=== PATIENT | female | born 1980 | race Two or more races ===

== ENCOUNTER → 2017-08-23 | Outpatient (CLI) | payer MEDICAID | LOC: FIMAGING 17:31 | PROVIDERS: ATTEND Nurse Practitioner Adult Health | DX: R06.02 Shortness of breath (principal) ==

== ENCOUNTER 2018-02-28 22:20 | Emergency (ER) | payer MEDICAID ==
--- NOTE | 2018-02-28 22:28 | EDPHY ---
H & P Stated Complaint: SICK FOR PAST 6 YEARS, SOB AND FEVER Time Seen by Provider: 02/28/18 22:27 HPI/ROS: HPI CHIEF COMPLAINT: Generalized weakness x2 days, chronically ill for 6 years HISTORY OF PRESENT ILLNESS: This patient is a 37-year-old female, she presents emergency room with generalized weakness for 2 days. Progressively getting worse. She states for the past 2 days she has been in bed unable to get out of bed and has been too weak. She states additionally she feels short of breath and global weakness and heaviness of her arms and legs. She states that she has been chronically ill and sick for 6 years she initially got malaria was treated for malaria then developed neuropathy. She states she takes large amount of supplements but no significant medications. She states she is unemployed and cannot work due to her chronic debility and generalized weakness. Decided come the emergency room tonight due to worsening global weakness. She denies any fever. Denies chest pain does complain of shortness of breath. Complains that all of her limbs or heavy. Denies neck pain or headache. Denies focal numbness or tingling, denies abdominal pain vomiting or diarrhea. Past Medical History: History of malaria, neuropathy, generalized weakness Past Surgical History: Appendectomy Social History: Denies drugs alcohol tobacco products. Unemployed. Mom at bedside. Family History: Noncontributory ROS REVIEW OF SYSTEMS: A comprehensive 10 point review of systems is otherwise negative aside from elements mentioned in the history of present illness. Exam Constitutional appears nontoxic, triage nursing summary reviewed, vital signs reviewed, awake/alert. Eyes normal conjunctivae and sclera, EOMI, PERRLA. HENT normal inspection, atraumatic, moist mucus membranes, no epistaxis, neck supple/ no meningismus, no raccoon eyes. Respiratory clear to auscultation bilaterally, normal breath sounds, no respiratory distress, no wheezing. Cardiovascular rate normal, regular rhythm, no murmur, no edema, distal pulses normal. Gastrointestinal soft, non-tender, no rebound, no guarding, normal bowel sounds, no distension, no pulsatile mass. Genitourinary no CVA tenderness. Musculoskeletal no midline vertebral tenderness, full range of motion, no calf swelling, no tenderness of extremities, no meningismus, good pulses, neurovascularly intact. Skin pink, warm, & dry, no rash, skin atraumatic. Neurologic globally weak, no focal neuro deficit, awake, alert and oriented x 3 , AAOx3, moves all 4 extremities equally, motor intact, sensory intact, CN II- XII intact, normal cerebellar, normal vision, normal speech. Psychiatric normal mood/affect. Heme/Lymph/Immune no lymphadenopathy. Differential Diagnosis: Includes but is not limited to in a particular order electrolyte disturbance, dehydration, infection, neuropathy, anxiety, panic attack, UTI, pneumonia, acute coronary syndrome, PE Medical Decision Making: Plan for this patient workup rather extensive for generalized weakness, check electrolytes, gentle IV fluids, check for infection urinalysis and chest x-ray, blood work, EKG and re-evaluate. Re-evaluation: 1215: Patient re-evaluated she is feeling much better after IV fluids. Her blood work has been reviewed she had extensive workup here in emergency room for generalized weakness. Her blood work is unremarkable her electrolytes are appropriate she does not have an elevated white blood cell count. There is no signs of systemic infection. Her vitals have been stable here. She has a normal chest x-ray and nonischemic normal EKG. Unclear etiology of global weakness but she is feeling better after IV fluids. I discussed return precautions with her. She understands return emergency room she develops worsening symptoms includes chest pain, shortness of breath, fever , or feeling worse. I do recommend she follows up with primary care doctor. She asked me for antibiotics for possible sinus disease however there is no evidence of sinus infection on exam nor did she have an elevated white blood cell count her vital signs are stable she is afebrile. She has no sinus tenderness on exam. I have declined antibiotics at this time. Recommend she follows up with primary care doctor. Return to the ER for worsening symptoms. 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 appendectomy; workup for autoimmune disorder - Social History Smoking Status: Never smoked Constitutional: Initial Vital Signs Temperature (C) 36.3 C 02/28/18 22:23 Heart Rate 84 02/28/18 22:23 Respiratory Rate 18 02/28/18 22:23 Blood Pressure 131/75 H 02/28/18 22:23 O2 Sat (%) 100 02/28/18 22:23 O2 Delivery Mode Room Air Allergies/Adverse Reactions: ciprofloxacin [From Cipro] Allergy (Verified 02/28/18 22:25) ciprofloxacin HCl [From Cipro] Allergy (Verified 02/28/18 22:25) famotidine Allergy (Verified 02/28/18 22:25) Other-Enter Comments nitrofurantoin Allergy (Verified 02/28/18 22:25) omeprazole Allergy (Verified 02/28/18 22:25) Other-Enter Comments Home Medications: Medication Instructions Recorded NK [No Known Home Meds] 11/19/15 Medical Decision Making - Diagnostics Imaging Results: Imaging Impressions Chest X-Ray 02/28/18 22:34 IMPRESSION: Normal chest x-ray. - Data Points Laboratory Results: Laboratory Results 02/28/18 22:35 02/28/18 22:35 02/28/18 02/28/18 02/28/18 23:05 22:35 22:35 WBC RBC Hgb Hct MCV MCH MCHC RDW Plt Count MPV Neut % (Auto) Lymph % (Auto) [place] % (Auto) Eos % (Auto) Baso % (Auto) Nucleat RBC Rel Count Absolute Neuts (auto) Absolute Lymphs (auto) Absolute Monos (auto) Absolute Eos (auto) Absolute Basos (auto) Absolute Nucleated RBC Immature Gran % Immature Gran # ESR PT INR APTT D-Dimer Sodium 136 mEq/L mEq/L (135-145) Potassium 3.9 mEq/L mEq/L (3.5-5.2) Chloride 99 mEq/L mEq/L (97-110) Carbon Dioxide 21 mEq/l L mEq/l (22-31) Anion Gap 16 mEq/L mEq/L (8-16) BUN 11 mg/dL mg/dL (7-23) Creatinine 0.5 mg/dL L mg/dL (0.6-1.0) Estimated GFR > 60 Glucose 114 mg/dL H mg/dL (70-100) Calcium 9.8 mg/dL mg/dL (8.5-10.4) Magnesium 1.8 mg/dL mg/dL (1.6-2.3) Total Bilirubin 0.4 mg/dL mg/dL (0.1-1.4) Conjugated Bilirubin 0.3 mg/dL mg/dL (0.0-0.5) Unconjugated Bilirubin 0.1 mg/dL mg/dL (0.0-1.1) AST 29 IU/L IU/L (14-46) ALT 43 IU/L IU/L (9-52) Alkaline Phosphatase 52 IU/L IU/L (38-126) Creatine Kinase 55 IU/L IU/L (0-156) CK-MB (CK-2) Fraction 0.48 ng/mL ng/mL (0.00-3.19) Troponin I < 0.012 ng/mL ng/mL (0.000-0.034) C-Reactive Protein < 5.0 mg/L mg/L (<10.0) NT-Pro-B Natriuret Pep 48 pg/mL pg/mL (0-125) Total Protein 8.0 g/dL g/dL (6.3-8.2) Albumin 4.8 g/dL g/dL (3.5-5.0) Lipase 287 IU/L IU/L (23-300) TSH 3.880 uIU/mL uIU/mL (0.465-4.680) Beta HCG, Qual NEGATIVE Urine Color COLORLESS Urine Appearance CLEAR Urine pH 5.0 (5.0-7.5) Ur Specific [place] 1.003 (1.002-1.030) Urine Protein NEGATIVE (NEGATIVE) Urine Ketones NEGATIVE (NEGATIVE) Urine Blood NEGATIVE (NEGATIVE) Urine Nitrate NEGATIVE (NEGATIVE) Urine Bilirubin NEGATIVE (NEGATIVE) Urine Urobilinogen NEGATIVE EU EU (0.2-1.0) Ur Leukocyte Esterase NEGATIVE (NEGATIVE) Urine Glucose NEGATIVE (NEGATIVE) Urine Opiates Screen NEGATIVE (NEGATIVE) Urine Barbiturates NEGATIVE (NEGATIVE) Ur Phencyclidine Scrn NEGATIVE (NEGATIVE) Ur Amphetamine Screen NEGATIVE (NEGATIVE) U Benzodiazepines Scrn NEGATIVE (NEGATIVE) Urine Cocaine Screen NEGATIVE (NEGATIVE) U Marijuana (THC) Screen NEGATIVE (NEGATIVE) 02/28/18 02/28/18 22:35 22:35 WBC 8.21 10^3/uL 10^3/uL (3.80-9.50) RBC 4.92 10^6/uL 10^6/uL (4.18-5.33) Hgb 13.8 g/dL g/dL (12.6-16.3) Hct 42.0 % % (38.0-47.0) MCV 85.4 fL fL (81.5-99.8) MCH 28.0 pg pg (27.9-34.1) MCHC 32.9 g/dL g/dL (32.4-36.7) RDW 11.9 % % (11.5-15.2) Plt Count 448 10^3/uL H 10^3/uL (150-400) MPV 8.9 fL fL (8.7-11.7) Neut % (Auto) 57.0 % % (39.3-74.2) Lymph % (Auto) 30.8 % % (15.0-45.0) [place] % (Auto) 7.8 % % (4.5-13.0) Eos % (Auto) 3.3 % % (0.6-7.6) Baso % (Auto) 0.9 % % (0.3-1.7) Nucleat RBC Rel Count 0.0 % % (0.0-0.2) Absolute Neuts (auto) 4.68 10^3/uL 10^3/uL (1.70-6.50) Absolute Lymphs (auto) 2.53 10^3/uL 10^3/uL (1.00-3.00) Absolute Monos (auto) 0.64 10^3/uL 10^3/uL (0.30-0.80) Absolute Eos (auto) 0.27 10^3/uL 10^3/uL (0.03-0.40) Absolute Basos (auto) 0.07 10^3/uL 10^3/uL (0.02-0.10) Absolute Nucleated RBC 0.00 10^3/uL 10^3/uL (0-0.01) Immature Gran % 0.2 % % (0.0-1.1) Immature Gran # 0.02 10^3/uL 10^3/uL (0.00-0.10) ESR 8 MM/HR MM/HR (0-20) PT 14.1 SEC SEC (12.0-15.0) INR 1.07 (0.83-1.16) APTT 31.4 SEC SEC (23.0-38.0) D-Dimer 0.32 ug/mLFEU ug/mLFEU (0.00-0.50) Sodium Potassium Chloride Carbon Dioxide Anion Gap BUN Creatinine Estimated GFR Glucose Calcium Magnesium Total Bilirubin Conjugated Bilirubin Unconjugated Bilirubin AST ALT Alkaline Phosphatase Creatine Kinase CK-MB (CK-2) Fraction Troponin I C-Reactive Protein NT-Pro-B Natriuret Pep Total Protein Albumin Lipase TSH Beta HCG, Qual Urine Color Urine Appearance Urine pH Ur Specific [place] Urine Protein Urine Ketones Urine Blood Urine Nitrate Urine Bilirubin Urine Urobilinogen Ur Leukocyte Esterase Urine Glucose Urine Opiates Screen Urine Barbiturates Ur Phencyclidine Scrn Ur Amphetamine Screen U Benzodiazepines Scrn Urine Cocaine Screen U Marijuana (THC) Screen Medications Given: Discontinued Medications Sodium Chloride (Ns) 1,000 mls @ 0 mls/hr IV EDNOW ONE; Wide Open PRN Reason: Protocol Stop: 02/28/18 22:34 Last Admin: 02/28/18 22:38 Dose: 1,000 mls Departure - Departure Disposition: Home, Routine, Self-Care Clinical Impression: Dehydration, Generalized weakness Condition: Good Instructions: Dehydration (ED), Weakness (ED) Additional Instructions: 1. Stay well-hydrated. 2. Follow up with her primary care doctor 3. Return to the emergency room if you have worsening symptoms questions or concerns. Referrals: NONE *PRIMARY CARE P,. [Primary Care Provider] - As per Instructions
[2018-02-28] MEDS ORDERED: NS 1,000 ML IV ONE (22:33)
--- NOTE | 2018-02-28 22:43 | CPEKG ---
Heart Rate: 83 RR Interval: 723 P-R Interval: 176 QRSD Interval: 72 QT Interval: 372 QTC Interval: 437 P [place]: 67 QRS [place]: 57 T Wave [place]: 40 EKG Severity - ABNORMAL ECG - EKG Impression: SINUS RHYTHM EKG Impression: PAIRED VENTRICULAR PREMATURE COMPLEXES EKG Impression: PROBABLE LEFT ATRIAL ABNORMALITY Electronically Signed By: Rashad Lopez 04-Mar-2018 12:06:11
[2018-02-28 22:49] LABS: PLATELET COUNT 448 10^3/uL (150-400)
[2018-02-28 22:56] LABS: INR 1.07 (0.83-1.16); PROTIME(PATIENT) 14.1 SEC (12.0-15.0)
[2018-02-28 23:07] LABS: CREATINE KINASE 55 IU/L (0-156)
[2018-03-01 00:21] VITALS: BP 105/68
== END 2018-03-01 00:32 | disposition home or self-care (01) ==
DX: R53.1 Weakness (principal); E86.0 Dehydration
CPT/HCPCS: 80305

== ENCOUNTER 2018-04-28 20:09 | Emergency (ER) | payer MEDICAID ==
--- NOTE | 2018-04-28 20:56 | EDPHY ---
General Time Seen by Provider: 04/28/18 20:35 Narrative: CHIEF COMPLAINT: jaundice, fungal infection, abdominal pain, urethral pain HISTORY OF PRESENT ILLNESS: Patient presents with complaints of jaundice, fungal infection, abdominal pain, urethral pain, fever and nausea. Symptoms have been present "for several days, and for 6 years." She feels as though that she has had some yellow appearing skin due to "infection starting a few days ago." She reports intermittent symptoms including "low grade fever." No chest pain but she has had some cough. She has upper abdominal pain and pain at the urethra. She feels as though she has had a candidal infection of the vagina/vulva that has minimal improvement with Monistat. She feels as though she has had fungal infection " to all of my skin," that has improved with topical terbinafine OTC. She also reports "the last time I felt this way I had malaria." She has not traveled to any endemic areas in over 6 years, and she was treated at that time as well. No other associated complaints or modifying factors. REVIEW OF SYSTEMS: Ten systems reviewed and are negative unless otherwise noted in the HPI PCP: Dr. Kira Nunez SPECIALISTS: None currently PAST MEDICAL HISTORY: Malaria, fungal infection PAST SURGICAL HISTORY: No recent surgeries SOCIAL HISTORY: Nonsmoker. Lives here independently. FAMILY HISTORY: Noncontributory EXAMINATION General Appearance: Alert, no distress Head: normocephalic, atraumatic Eyes: Pupils equal and round, no conjunctival pallor or injection. No icterus. EOM symmetric ENT, Mouth: Mucous membranes moist. No jaundice. Airway widely patent. Neck: Normal inspection, supple, non-tender Respiratory: Lungs are clear to auscultation Cardiovascular: Regular rate and rhythm. No murmur Gastrointestinal: Abdomen is soft and nontender. No tympany rigidity. No distention. No guarding. No CVA tenderness. : declined by patient Back: non-tender, no bony abnormalities Neurological: A&O, nonfocal, normal gait Skin: Warm and dry, no rash. No petechiae or purpura. No jaundice. Extremities: Nontender, no pedal edema Psychiatric: Mood and affect normal DIFFERENTIAL DIAGNOSES: Including but not limited to dehydration, pneumonia, dermatitis, vulvovaginitis , urethritis, cystitis, pyelonephritis MDM: 8:55 p.m. Multiple complaints including abdominal pain, nausea, "jaundice," vaginal discomfort and "fungal infection." Vital signs reveal mild tachycardia but she does not meet SIRS criteria. I have asked the patient to be moved from aden bed to a room. We will obtain IV access, laboratory studies, chest x-ray. I have also ordered IV fluid. 10:11 p.m. Patient re-evaluated. We discussed her laboratory studies which are relatively unremarkable. There is mild hypochloremia and mild concentration of the urine. Patient still has some urethral discomfort, thus I will order urine culture. She is declining a pelvic examination. Her abdominal exam remains benign, and I do not feel she warrants CT scan abdomen pelvis. She continues to feel that there is a rash all over that I do not appreciate on examination. Her vital signs are within normal limits. She has received 1 L IV fluid. I do feel she is stable for discharge home with outpatient follow-up with Rheumatology, Dermatology and at her request Urology. I do not appreciate any other findings here and I do feel she is ready for discharge home. She is comfortable this plan. SUPERVISION: Patient was independently examined, but I discussed the case with my secondary supervising physician Dr. Zhao - History Smoking Status: Never smoked - Objective Vital Signs: Initial Vital Signs Temperature (C) 99.0 F 04/28/18 20:11 Heart Rate 104 H 04/28/18 20:11 Respiratory Rate 16 04/28/18 20:11 Blood Pressure 122/77 H 04/28/18 20:11 O2 Sat (%) 97 04/28/18 20:11 O2 Delivery Mode Room Air Allergies/Adverse Reactions: ciprofloxacin [From Cipro] Allergy (Verified 04/28/18 20:14) ciprofloxacin HCl [From Cipro] Allergy (Verified 04/28/18 20:14) famotidine Allergy (Verified 04/28/18 20:14) Other-Enter Comments nitrofurantoin Allergy (Verified 04/28/18 20:14) omeprazole Allergy (Verified 04/28/18 20:14) Other-Enter Comments Home Medications: Medication Instructions Recorded Herbals/Supplements -Info Only 04/28/18 Monistat Soothing Care 04/28/18 Laboratory Results: 04/28/18 04/28/18 04/28/18 21:20 21:20 21:20 WBC Pending RBC Pending Hgb Pending Hct Pending MCV Pending MCH Pending MCHC Pending RDW Pending Plt Count Pending MPV Pending Neut % (Auto) Pending Lymph % (Auto) Pending [place] % (Auto) Pending Eos % (Auto) Pending Baso % (Auto) Pending Nucleat RBC Rel Count Pending Absolute Neuts (auto) Pending Absolute Lymphs (auto) Pending Absolute Monos (auto) Pending Absolute Eos (auto) Pending Absolute Basos (auto) Pending Absolute Nucleated RBC Pending Immature Gran % Pending Immature Gran # Pending Sodium Pending Potassium Pending Chloride Pending Carbon Dioxide Pending Anion Gap Pending BUN Pending Creatinine Pending Estimated GFR Pending Glucose Pending Calcium Pending Total Bilirubin Pending Conjugated Bilirubin Pending Unconjugated Bilirubin Pending AST Pending ALT Pending Alkaline Phosphatase Pending Total Protein Pending Albumin Pending Lipase Pending Beta HCG, Qual Pending Medications Given: Discontinued Medications Sodium Chloride (Ns) 1,000 mls @ 0 mls/hr IV EDNOW ONE; Wide Open PRN Reason: Protocol Stop: 04/28/18 20:59 Last Admin: 04/28/18 21:18 Dose: 1,000 mls Departure - Departure Disposition: Home, Routine, Self-Care Clinical Impression: Dehydration Abdominal pain Qualifiers: Abdominal location: generalized Qualified Code(s): R10.84 - Generalized abdominal pain Condition: Good Instructions: Acute Rash (ED), Acute Abdominal Pain (ED) Additional Instructions: 1. Return to emergency department if you do not have resolution within 24 hr 2. Contact the outpatient follow-up physicians as provided Referrals: [facility] [Outside] - As per Instructions Michael Khanna MD [Medical Doctor] - As per Instructions Neida Bonilla MD [Medical Doctor] - As per Instructions Kira Nunez MD [[facility] Primary Care Provider] - As per Instructions
[2018-04-28] MEDS ORDERED: NS 1,000 ML IV ONE (20:58)
[2018-04-28 21:31] LABS: PLATELET COUNT 465 10^3/uL (150-400)
[2018-04-28 22:31] VITALS: BP 111/74
== END 2018-04-28 22:28 | disposition home or self-care (01) ==
DX: R10.84 Generalized abdominal pain (principal); E86.9 Volume depletion, unspecified

== ENCOUNTER 2018-05-01 02:35 | Emergency (ER) | payer MEDICAID ==
--- NOTE | 2018-05-01 02:42 | EDPHY ---
H & P Time Seen by Provider: 05/01/18 02:42 HPI/ROS: HPI CHIEF COMPLAINT: Muscle aches, Chronically Ill. HISTORY OF PRESENT ILLNESS: Patient 37-year-old female, she states she is chronically illness been sick for 6 years. States she carries chronic illness is unable to work. She has a history of malaria, and malaria treatment that she states caused her neuropathy and chronic nerve damage, additionally she reports that she takes over the counter antifungals. She presents emergency room stating that all of her muscles ache. She states her right lateral leg got scratched by a dog a few days ago and ever since then she has had diffuse muscle aches. She denies any fever she denies chest pain shortness of breath, denies abdominal pain or vomiting. Denies headache or stiff neck. Main complaint is muscle aches initially started her legs and now has progressed upper body. No weakness. Past Medical History: Malaria, neuropathy, chronic illness, chronic debility Past Surgical History: Denies recent surgery but has had appendectomy Social History: Denies drugs alcohol tobacco Family History: Noncontributory ROS REVIEW OF SYSTEMS: A comprehensive 10 point review of systems is otherwise negative aside from elements mentioned in the history of present illness. Exam Constitutional appears well nontoxic no acute distress, triage nursing summary reviewed, vital signs reviewed, awake/alert. Eyes normal conjunctivae and sclera, EOMI, PERRLA. No jaundice, no icteric eyes. HENT normal inspection, atraumatic, moist mucus membranes, no epistaxis, neck supple/ no meningismus, no raccoon eyes. Respiratory clear to auscultation bilaterally, normal breath sounds, no respiratory distress, no wheezing. Cardiovascular rate normal, regular rhythm, no murmur, no edema, distal pulses normal. Gastrointestinal soft, non-tender, no rebound, no guarding, normal bowel sounds, no distension, no pulsatile mass. Genitourinary no CVA tenderness. Musculoskeletal no midline vertebral tenderness, full range of motion, no calf swelling, no tenderness of extremities, no meningismus, good pulses, neurovascularly intact. Skin no significant rash or discoloration visualized. Very superficial linear abrasion to the right lateral calf. pink, warm, & dry, no rash, skin atraumatic. Neurologic awake, alert and oriented x 3, AAOx3, moves all 4 extremities equally, motor intact, sensory intact, CN II-XII intact, normal cerebellar, normal vision, normal speech. Psychiatric normal mood/affect. Heme/Lymph/Immune no lymphadenopathy. Differential Diagnosis: Includes but is not limited to in a particular order dehydration, electrolyte disturbance, rhabdomyolysis, infection Medical Decision Making: Plan for this patient will establish an IV, fluid bolus 1 L normal saline, check basic blood work and re-evaluate. Vital signs are noted to be normal here. Re-evaluation: 0433: Patient resting comfortably here in the emergency room in no acute distress her blood work is reassuring except for sodium is noted to be a little bit low at 128. I did review her sodium from her last recent ER visit and was in 135. She does state that she has not been eating much. Additionally she has been drinking rather large amounts of free water. I encouraged her to not drink so much free water I encouraged her to increase salt into her diet. Additionally she should follow up with primary care doctor to have her sodium recheck in a few days. Additionally if she has worsening symptoms including chest pain, shortness of breath, fever, not feeling well, confusion, generalized weakness she should return emergency room she understands. She is comfortable this plan. Source: Patient - Personal History Tetanus Vaccine Date: unknown - Medical/Surgical History Hx Asthma: No Hx Chronic Respiratory Disease: No Hx Diabetes: No Hx Cardiac Disease: No Hx Renal Disease: No Hx Cirrhosis: No Hx Alcoholism: No Hx HIV/AIDS: No Hx Splenectomy or Spleen Trauma: No Other PMH: 2011 Malaria, nerve damage from malaria tx; phlebitis & superficial thrombosis; FUO since January. appendectomy; workup for autoimmune disorder - Social History Smoking Status: Never smoked Constitutional: Initial Vital Signs Temperature (C) 37.4 C 05/01/18 02:43 Heart Rate 90 05/01/18 02:43 Respiratory Rate 16 05/01/18 02:43 Blood Pressure 115/71 05/01/18 02:43 O2 Sat (%) 98 05/01/18 02:43 O2 Delivery Mode Room Air Allergies/Adverse Reactions: ciprofloxacin [From Cipro] Allergy (Verified 05/01/18 02:42) ciprofloxacin HCl [From Cipro] Allergy (Verified 05/01/18 02:42) famotidine Allergy (Verified 05/01/18 02:42) Other-Enter Comments nitrofurantoin Allergy (Verified 05/01/18 02:42) omeprazole Allergy (Verified 05/01/18 02:42) Other-Enter Comments Home Medications: Medication Instructions Recorded Miconazole Nitrate [Monistat 3] 200 mg VG 05/01/18 Medical Decision Making - Data Points Laboratory Results: Laboratory Results 05/01/18 03:30 05/01/18 03:30 05/01/18 05/01/18 05/01/18 03:30 03:30 03:30 WBC 6.47 10^3/uL 10^3/uL (3.80-9.50) RBC 4.38 10^6/uL 10^6/uL (4.18-5.33) Hgb 12.6 g/dL g/dL (12.6-16.3) Hct 37.2 % L % (38.0-47.0) MCV 84.9 fL fL (81.5-99.8) MCH 28.8 pg pg (27.9-34.1) MCHC 33.9 g/dL g/dL (32.4-36.7) RDW 11.9 % % (11.5-15.2) Plt Count 414 10^3/uL H 10^3/uL (150-400) MPV 9.2 fL fL (8.7-11.7) Neut % (Auto) 76.9 % H % (39.3-74.2) Lymph % (Auto) 13.9 % L % (15.0-45.0) Hancock % (Auto) 7.9 % % (4.5-13.0) Eos % (Auto) 0.5 % L % (0.6-7.6) Baso % (Auto) 0.6 % % (0.3-1.7) Nucleat RBC Rel Count 0.0 % % (0.0-0.2) Absolute Neuts (auto) 4.98 10^3/uL 10^3/uL (1.70-6.50) Absolute Lymphs (auto) 0.90 10^3/uL L 10^3/uL (1.00-3.00) Absolute Monos (auto) 0.51 10^3/uL 10^3/uL (0.30-0.80) Absolute Eos (auto) 0.03 10^3/uL 10^3/uL (0.03-0.40) Absolute Basos (auto) 0.04 10^3/uL 10^3/uL (0.02-0.10) Absolute Nucleated RBC 0.00 10^3/uL 10^3/uL (0-0.01) Immature Gran % 0.2 % % (0.0-1.1) Immature Gran # 0.01 10^3/uL 10^3/uL (0.00-0.10) Sodium 128 mEq/L L mEq/L (135-145) Potassium 4.6 mEq/L mEq/L (3.3-5.0) Chloride 94 mEq/L L mEq/L (97-110) Carbon Dioxide 17 mEq/l L mEq/l (22-31) Anion Gap 17 mEq/L H mEq/L (8-16) BUN 2 mg/dL L mg/dL (7-23) Creatinine 0.5 mg/dL L mg/dL (0.6-1.0) Estimated GFR > 60 Glucose 85 mg/dL mg/dL (70-100) Calcium 9.0 mg/dL mg/dL (8.5-10.4) Magnesium 1.8 mg/dL mg/dL (1.6-2.3) Total Bilirubin 0.9 mg/dL mg/dL (0.1-1.4) Conjugated Bilirubin 0.4 mg/dL mg/dL (0.0-0.5) Unconjugated Bilirubin 0.5 mg/dL mg/dL (0.0-1.1) AST 33 IU/L IU/L (14-46) ALT 36 IU/L IU/L (9-52) Alkaline Phosphatase 53 IU/L IU/L (38-126) Creatine Kinase 114 IU/L IU/L (0-156) Total Protein 7.8 g/dL g/dL (6.3-8.2) Albumin 4.7 g/dL g/dL (3.5-5.0) Beta HCG, Qual NEGATIVE Medications Given: Discontinued Medications Sodium Chloride (Ns) 1,000 mls @ 0 mls/hr IV EDNOW ONE; Wide Open PRN Reason: Protocol Stop: 05/01/18 03:15 Last Admin: 05/01/18 03:55 Dose: 1,000 mls Departure - Departure Disposition: Home, Routine, Self-Care Clinical Impression: Hyponatremia Condition: Good Instructions: Hyponatremia (ED) Additional Instructions: 1. Please follow up with her primary care doctor 2. I would increase her salt intake. 3. You're sodium was slightly low at 128. 4. I would watch him much free water you drink. 5. Try to increase her salt intake. 6. Return to the emergency room if he develops worsening symptoms questions or concerns. Referrals: Kira Nunez MD [Primary Care Provider] - As per Instructions
[2018-05-01] MEDS ORDERED: NS 1,000 ML IV ONE (03:14)
[2018-05-01 03:42] LABS: PLATELET COUNT 414 10^3/uL (150-400)
[2018-05-01 03:53] LABS: CREATINE KINASE 114 IU/L (0-156)
[2018-05-01 04:50] VITALS: BP 115/77
== END 2018-05-01 04:48 | disposition home or self-care (01) ==
DX: E87.1 Hypo-osmolality and hyponatremia (principal); E86.9 Volume depletion, unspecified

== ENCOUNTER 2018-05-02 01:43 | Emergency (ER) | payer MEDICAID ==
--- NOTE | 2018-05-02 01:55 | EDPHY ---
H & P Stated Complaint: SELF CORRECT NA+,DIZZY,DIFF WALKING/LOW NA+ YEST Time Seen by Provider: 05/02/18 01:55 HPI/ROS: HPI CHIEF COMPLAINT: Seen last night low-sodium HISTORY OF PRESENT ILLNESS: Patient 37-year-old female she presents emergency room after she states that she was seen here in the emergency room by myself last night with a slightly low sodium. She states that she went home last night and yesterday increased her sodium she you story sauce, additionally drink Pedialyte, additionally ate salty things and she states that she felt rather lightheaded somewhat dizzy trouble walking and she is now concerned that her sodium may be too high. She checked back in the emergency room to have her sodium checked. Since having the symptoms she has felt slightly better. She drank water. She denies any chest pain or shortness of breath, denies fever, denies dizziness, denies headache. Past Medical History: Malaria, chronic debility, neuropathy Past Surgical History: No recent surgery Social History: She lives locally denies drugs alcohol tobacco. Family History: Noncontributory ROS REVIEW OF SYSTEMS: A comprehensive 10 point review of systems is otherwise negative aside from elements mentioned in the history of present illness. Exam Constitutional triage nursing summary reviewed, vital signs reviewed, awake/ alert. Eyes normal conjunctivae and sclera, EOMI, PERRLA. HENT normal inspection, atraumatic, moist mucus membranes, no epistaxis, neck supple/ no meningismus, no raccoon eyes. Respiratory clear to auscultation bilaterally, normal breath sounds, no respiratory distress, no wheezing. Cardiovascular rate normal, regular rhythm, no murmur, no edema, distal pulses normal. Gastrointestinal soft, non-tender, no rebound, no guarding, normal bowel sounds, no distension, no pulsatile mass. Genitourinary no CVA tenderness. Musculoskeletal no midline vertebral tenderness, full range of motion, no calf swelling, no tenderness of extremities, no meningismus, good pulses, neurovascularly intact. Skin pink, warm, & dry, no rash, skin atraumatic. Neurologic awake, alert and oriented x 3, AAOx3, moves all 4 extremities equally, motor intact, sensory intact, CN II-XII intact, normal cerebellar, normal vision, normal speech. Psychiatric normal mood/affect. Heme/Lymph/Immune no lymphadenopathy. Differential Diagnosis: Includes but is not limited to in a particular order electrolyte disturbance, hyponatremia, hypernatremia Medical Decision Making: Plan for this patient check BMP. Re-evaluation: BMP repeat chemistry check sodium is back to normal. Recommend patient refrain from ingesting large amounts of salt or large amounts of free water. Recommend regular diet. Return precautions discussed with the patient she understands Source: Patient - Personal History LMP (Females 10-55): Now Current Tetanus Diphtheria and Acellular Pertussis (TDAP): No Tetanus Vaccine Date: unknown - Medical/Surgical History Hx Asthma: No Hx Chronic Respiratory Disease: No Hx Diabetes: No Hx Cardiac Disease: No Hx Renal Disease: No Hx Cirrhosis: No Hx Alcoholism: No Hx HIV/AIDS: No Hx Splenectomy or Spleen Trauma: No Other PMH: 2011 Malaria, nerve damage from malaria tx; phlebitis & superficial thrombosis; FUO since January. appendectomy; workup for autoimmune disorder, AUTONOMIC NEUROPATHY - Social History Smoking Status: Never smoked Constitutional: Initial Vital Signs Temperature (C) 36.7 C 05/02/18 01:50 Heart Rate 89 05/02/18 01:50 Respiratory Rate 16 05/02/18 01:50 Blood Pressure 128/84 H 05/02/18 01:50 O2 Sat (%) 99 05/02/18 01:50 O2 Delivery Mode Room Air Allergies/Adverse Reactions: ciprofloxacin [From Cipro] Allergy (Verified 05/01/18 02:42) ciprofloxacin HCl [From Cipro] Allergy (Verified 05/01/18 02:42) famotidine Allergy (Verified 05/01/18 02:42) Other-Enter Comments nitrofurantoin Allergy (Verified 05/01/18 02:42) omeprazole Allergy (Verified 05/01/18 02:42) Other-Enter Comments Home Medications: Medication Instructions Recorded Miconazole Nitrate [Monistat 3] 200 mg VG 05/01/18 Antibacterial Herbal 05/02/18 Herbal Antifungal 05/02/18 Herbal Antiviral 05/02/18 Medical Decision Making - Data Points Laboratory Results: Laboratory Results 05/02/18 02:20 05/02/18 02:20 Sodium 139 mEq/L mEq/L (135-145) Potassium 4.3 mEq/L mEq/L (3.3-5.0) Chloride 104 mEq/L mEq/L (97-110) Carbon Dioxide 20 mEq/l L mEq/l (22-31) Anion Gap 15 mEq/L mEq/L (8-16) BUN 3 mg/dL L mg/dL (7-23) Creatinine 0.5 mg/dL L mg/dL (0.6-1.0) Estimated GFR > 60 Glucose 90 mg/dL mg/dL (70-100) Calcium 9.0 mg/dL mg/dL (8.5-10.4) Departure - Departure Disposition: Home, Routine, Self-Care Clinical Impression: Electrolyte disturbance Condition: Good Instructions: Dehydration (ED) Additional Instructions: 1. Recommend regular diet. 2. Do not consume large amounts of salt or large amounts of free water. Regular diet. Referrals: Kira Nunez MD [Primary Care Provider] - As per Instructions
[2018-05-02 02:58] VITALS: BP 128/80
== END 2018-05-02 02:58 | disposition home or self-care (01) ==
DX: E87.8 Other disorders of electrolyte and fluid balance, not elsewhere classified (principal)

== ENCOUNTER 2018-05-02 15:47 | Emergency (ER) | payer MEDICAID ==
--- NOTE | 2018-05-02 16:23 | EDPHY ---
H & P Stated Complaint: facial numbness since 0300am .eyes tracking differently Time Seen by Provider: 05/02/18 16:16 HPI/ROS: CHIEF COMPLAINT: Cannot move eyes to the left HISTORY OF PRESENT ILLNESS: Patient is a 37-year-old female with a history of several chronic illnesses whose not been able to work for the last 6 years for "sickness". She has a history of malaria and treatment of malaria that caused chronic nerve damage particularly in her feet. She was here twice yesterday with muscle cramps and treated initially for mild hyponatremia. She went home and 8 large amounts of sodium orally and came back concerned that she was now hypernatremic. Her sodium went from 128 to 139. She did not have a headache or any deficits. She was treated for dehydration. Today she presented to [facility] with multiple complaints including paresthesias in her right leg where she had a dog bite a week ago even though it is completely healed. Also tingling in her feet, a change in the look of her smile, bilateral face tingling. All the symptoms have been intermittent for several years. The [facility] Dr. Singleton reported to me that her exam was completely normal except she would not look to the right. She suspected that this was somewhat voluntary. Now here in the ER the patient states that she could not look to the left but her symptoms have resolved. REVIEW OF SYSTEMS: Constitutional: See HPI EENTM: See HPI denies: blurred vision, double vision, nose congestion Respiratory: denies: cough, shortness of breath Cardiac: denies: chest pain, irregular heart rate, lightheadedness, palpitations Gastrointestinal/Abdominal: denies: abdominal pain, diarrhea, nausea, vomiting, blood streaked stools Genitourinary: denies: dysuria, frequency, hematuria, pain Musculoskeletal: denies: joint pain, muscle pain Skin: denies: lesions, rash, jaundice, bruising Neurological: See HPI denies: headache, dizziness, weakness Hematologic/Lymphatic: denies: blood clots, easy bleeding, easy bruising Immunologic/allergic: denies: HIV/AIDS, transplant EXAM: GENERAL: Well-appearing, well-nourished and in no acute distress. HEAD: Atraumatic, normocephalic. EYES: Pupils equal round and reactive to light, extraocular movements intact better when distracted, sclera anicteric, conjunctiva are normal. ENT: TMs normal, nares patent, oropharynx clear without exudates. Moist mucous membranes. NECK: Normal range of motion, supple without lymphadenopathy or JVD. LUNGS: Breath sounds clear to auscultation bilaterally and equal. No wheezes rales or rhonchi. HEART: Regular rate and rhythm without murmurs, rubs or gallops. ABDOMEN: Soft, nontender, normoactive bowel sounds. No guarding, no rebound. No masses appreciated. BACK: No CVA tenderness, no spinal tenderness, step-offs or deformities EXTREMITIES: Normal range of motion, no pitting or edema. No clubbing or cyanosis. NEUROLOGICAL: NIH stroke score 0, Cranial nerves II through XII grossly intact. Normal speech, normal gait. 5/5 strength, normal movement in all extremities, normal sensation PSYCH: Normal mood, normal affect. SKIN: Warm, dry, normal turgor, no visible rashes or lesions. Source: Patient Exam Limitations: No limitations - Personal History LMP (Females 10-55): Now Current Tetanus/Diphtheria Vaccine: Unsure Current Tetanus Diphtheria and Acellular Pertussis (TDAP): Unsure Tetanus Vaccine Date: unknown - Medical/Surgical History Hx Asthma: No Hx Chronic Respiratory Disease: No Hx Diabetes: No Hx Cardiac Disease: No Hx Renal Disease: No Hx Cirrhosis: No Hx Alcoholism: No Hx HIV/AIDS: No Hx Splenectomy or Spleen Trauma: No Other PMH: 2011 Malaria, nerve damage from malaria tx; phlebitis & superficial thrombosis; FUO since January. appendectomy; workup for autoimmune disorder, AUTONOMIC NEUROPATHY - Family History Significant Family History: No pertinent family hx - Social History Smoking Status: Never smoked Alcohol Use: Sober Drug Use: None Constitutional: Initial Vital Signs Temperature (C) 37.1 C 05/02/18 15:51 Heart Rate 85 05/02/18 15:51 Respiratory Rate 16 05/02/18 15:51 Blood Pressure 120/79 05/02/18 15:51 O2 Sat (%) 98 05/02/18 15:51 O2 Delivery Mode Room Air Allergies/Adverse Reactions: ciprofloxacin [From Cipro] Allergy (Verified 05/02/18 15:55) ciprofloxacin HCl [From Cipro] Allergy (Verified 05/02/18 15:55) famotidine Allergy (Verified 06/15/18 15:55) Other-Enter Comments nitrofurantoin Allergy (Verified 05/02/18 15:55) omeprazole Allergy (Verified 05/02/18 15:55) Other-Enter Comments Home Medications: Medication Instructions Recorded Miconazole Nitrate [Monistat 3] 200 mg VG 05/01/18 Antibacterial Herbal 05/02/18 Herbal Antifungal 05/02/18 Herbal Antiviral 05/02/18 Medical Decision Making ED Course/Re-evaluation: The patient has a completely normal neuro examination. She complains that she could not look to the left although the physician said she could not look to the right. Here she has completely normal extraocular muscle exam. She does have improvement when distracted. I suspect that a large portion of this is due to anxiety or possibly hypochondriac. The patient has stable vital signs and states that she is currently asymptomatic. I did offer to repeat lab work that was done yesterday to verify. It is not feel like imaging is necessary. She and her mom declined. I recommend they follow up with her primary. I spoke again with Dr. Oseguera who confirms that symptoms previously worked to the right. She also feels that this is likely functional. Differential Diagnosis: Partial list of the Differential diagnosis considered include but were not limited to; electrolyte abnormality, anxiety, hypochondriac, neuropathy, Madrigal' s palsy and although unlikely based on the history and physical exam, I also considered CVA, dissection, infection, tumor. I discussed these differential diagnoses and the plan with the patient as well as the usual and expected course. The patient understands that the diagnosis is provisional and that in medicine we are not always correct and that further workup is often warranted. Usual and customary warnings were given. All of the patient's questions were answered. The patient was instructed to return to the emergency department should the symptoms at all worsen or return, otherwise to followup with the physician as we discussed. Departure - Departure Disposition: Home, Routine, Self-Care Clinical Impression: Anxiety about health, Hypochondriacal disorder Condition: Fair Instructions: Anxiety (ED) Referrals: Kira Nunez MD [Primary Care Provider] - As per Instructions
[2018-05-02 16:28] VITALS: BP 101/70
== END 2018-05-02 16:28 | disposition home or self-care (01) ==
DX: F41.9 Anxiety disorder, unspecified (principal); F45.20 Hypochondriacal disorder, unspecified

== ENCOUNTER → 2018-05-13 | Outpatient (CLI) | payer MEDICAID | LOC: FIMAGING 15:20 | PROVIDERS: ATTEND Physician Assistant Medical | DX: R51 Headache (principal) ==